=== PATIENT | male | born 1945 | race Caucasian/White ===

== ENCOUNTER → 2018-05-14 | Outpatient (CLI) | payer MEDICARE, BC ==
[~2018-05-14] MED LIST: TAM4 PO
--- NOTE | 2018-05-14 14:35 | RADIOLOGY IMAGING REPORT ---
FACILITY: [facility] PATIENT NAME: Armando Hathaway : 1945 MR: [id number] V: [id number] EXAM DATE: ORDERING PHYSICIAN: CHAZ MARADIAGA TECHNOLOGIST: Location: [facility] Patient: Armando Hathaway : 1945 Visit/Account:[id number] Date of Sevice: 05/14/2018 Exam type: HIP LEFT History: Left hip pain Comparison: None. Findings: Two views of the left hip demonstrate no evidence of acute fracture or dislocation or significant art hritic change. No lytic or blastic bone lesions are identified IMPRESSION: 1. No acute osteoarticular abnormality the left hip is seen Report Dictated By: Mariela Clark MD at 05/14/2018 2:30 PM Report E-Signed By: Mariela Clark MD at 05/14/2018 2:31 PM WSN:[email or web address]
== END ==
LOC: RAD 11:15
PROVIDERS: ATTEND Internal Medicine Rheumatology
DX: M25.552 Pain in left hip (principal); M35.3 Polymyalgia rheumatica